=== PATIENT | female | born 1955 | race Caucasian/White ===

== ENCOUNTER 2021-07-24 09:17 | Emergency (ER) | payer OTHER ==
[~2021-07-24 09:17] MED LIST: PRENATAL FORMU1 EACH PO
[2021-07-24 09:53] LABS: BASOPHIL 1.1 % (0-2); EOSINOPHIL 4.4 % (0-7); HCT 42.5 % (37.0-47.0); HGB 13.9 g/dl (12.5-16.0); LYMPHOCYTE 33.6 % (15-48); MCHC 32.7 g/dL (32.0-36.0); MCV 88.7 fL (78.0-100.0); MONOCYTE 7.4 % (0-12); MPV 9.6 fL (6.0-9.5); NEUTROPHIL 53.2 % (41-80); NRBC 0; PLT 304 K/uL (150-400); RBC 4.79 M/uL (4.20-5.40); RDW 12.8 % (11.5-14.0); WBC 6.2 K/uL (4.0-10.5)
[2021-07-24 09:55] LABS: BILIRUBIN NEGATIVE (NEGATIVE); BLOOD 1+ Ery/uL (NEGATIVE); CLARITY CLEAR (CLEAR); COLOR YELLOW (YELLOW); GLUCOSE (U) NORMAL (NORMAL); LEUKOCYTES 2+ Leu/uL (NEGATIVE); NITRITE NEGATIVE (NEGATIVE); PROTEIN NEGATIVE (NEGATIVE); UROBILINOGEN 0.2 mg/dL (0.2-1.0); pH 5.5 (5.0-9.0)
[2021-07-24 10:05] LABS: BUN/CREAT RATIO (CALC) 16.5 RATIO; CREATININE 0.91 mg/dL (0.51-0.95); POTASSIUM 3.6 mmol/L (3.5-5.1)
[2021-07-24 10:10] LABS: BACTERIA TRACE; URINARY RBC RARE
[2021-07-24] MEDS ORDERED: FLEXERIL5 MG PO (11:44)
== END 2021-07-24 11:59 | disposition home or self-care (01) ==
LOC: FER 09:17
PROVIDERS: Emergency Medicine
DX: N28.1 Cyst of kidney, acquired (principal); M54.9 Dorsalgia, unspecified; I10 Essential (primary) hypertension; Z88.5 Allergy status to narcotic agent
CPT/HCPCS: 36415; 80048; 81001; 85025; 96372; J1170; J1885; J2405; J3301